=== PATIENT | female | born 1990 | race Two or more races ===

== ENCOUNTER 2024-01-21 13:12 | Emergency (ER) | payer OTHER, SELFPAY ==
[2024-01-21] VITALS (8 sets, daily range): BP systolic 101–148; BP diastolic 73–107; PULSE 74–103; RESP 11–98; TEMP 36.8; O2SAT 17–98; BMI 51.2
--- NOTE | 2024-01-21 13:16 | ECG_ITS ---
APPROVED REPORT Exam: Resting ECG HR:100 bpm ECG Measurements Heart Rate 100 AXES TX 132 P 50 QRSd 104 QRS 5 QT 340 T 30 QTc 397 Conclusion SINUS TACHYCARDIA LOW QRS VOLTAGE IN PRECORDIAL LEADS [QRS DEFLECTION < 1.0 mV IN CHEST LEADS] ABNORMAL RHYTHM ECG Electronically signed by : Abelino Wen, 01/21/2024 16:09:02
--- NOTE | 2024-01-21 13:35 | CT_ITS ---
FINAL REPORT TECHNIQUE: Axial CT images were performed through the head. Coronal reformatted images were submitted. This study was performed with techniques to keep radiation doses as low as reasonably achievable (ALARA). Individualized dose reduction techniques using automated exposure control or adjustment of mA and/or kV according to the patient's size were employed. CLINICAL HISTORY: stallings, vision changes COMPARISON: None FINDINGS: The ventricles are normal in size. There is no evidence of hemorrhage. There is no mass or edema identified. There is no abnormal extra-axial fluid seen. There is a retention cyst or polyp in the left maxillary sinus. IMPRESSION: No acute intracranial process. Reviewed, Interpreted and Dictated by Satnam Edwards MD Transcribed by Ann Aguilar Authenticated and [facility]
--- NOTE | 2024-01-21 13:35 | CT_ITS ---
FINAL REPORT TECHNIQUE: Axial images through the brain were performed after the administration of IV contrast. Coronal reconstructions were submitted. This study was performed with techniques to keep radiation doses as low as reasonably achievable (ALARA). Individualized dose reduction techniques using automated exposure control or adjustment of mA and/or kV according to the patient's size were employed. CLINICAL HISTORY: stallings, vision changes COMPARISON: None FINDINGS: The superior sagittal sinus and transverse sinuses appear patent. There is no evidence of superior sagittal sinus thrombosis. There is no evidence of intracranial hemorrhage or mass. The ventricular size is within normal limits. There is no evidence of shift of the midline structures. No abnormal extra axial fluid collection is identified. No skull abnormality is seen on the bone window images. No evidence of abnormal enhancement. IMPRESSION: No acute intracranial process. Reviewed, Interpreted and Dictated by Satnam Edwards MD Transcribed by Ann Aguilar Authenticated and [facility]
--- NOTE | 2024-01-21 13:35 | CT_ITS ---
FINAL REPORT TECHNIQUE: The patient was injected with IV contrast. Axial images were obtained through the chest in a PE protocol. 3-D reconstruction images were also performed. Individualized dose reduction techniques using automated exposure control or adjustment of the MA and/or KV according to patient's size were employed. CLINICAL HISTORY: cp, sob, tachy COMPARISON: None FINDINGS: Pulmonary arteries are suboptimally opacified. No definite pulmonary artery filling defects are identified to suggest PE. There is no aortic dissection. There is no axillary adenopathy. There is no hilar or mediastinal adenopathy. The heart size is normal. There is no pericardial or pleural effusion. Limited images of the upper abdomen demonstrate fatty infiltration of the liver. 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 The gallbladder is present. There is mild splenomegaly measuring up to 14 cm. The pancreas, adrenals, and kidneys are unremarkable.. No suspicious infiltrate or nodule is identified. IMPRESSION: No definite pulmonary embolus. Fatty liver and mild splenomegaly. Reviewed, Interpreted and Dictated by Satnam Edwards MD Transcribed by Ann Aguilar Authenticated and [facility]
--- NOTE | 2024-01-21 13:45 | [facility].EDGENADL ---
Discharge Plan Disposition Patient Disposition: Home, Self-Care Chief Complaint: Shortness of Breath/Dyspnea Referrals Follow up/Referrals: Provider,MD Monroe [Primary Care Provider] - See instructions Activity Restrictions/Add. Instructions Additional Instructions/Restrictions: Call your family doctor to establish care for this visit to the emergency department and schedule follow-up within 48 hours to ensure improvement. If you have any worsening of your condition or any other concerning signs or symptoms, return to the emergency department or your primary care doctor for further evaluation. Your liver enzymes, called transaminases, are slightly elevated today. This should be followed up with your primary care doctor. Clinical Impressions Clinical Impression: Migraine, Chest pain Print Language Print Language: Somali Discharge ED Provider: Juan Salmeron General Adult HPI <Abelino Wen MD - Last Filed: 01/21/24 16:20> General Chief complaint: Shortness of Breath/Dyspnea Stated complaint: Chest pain Time Seen by Provider: 01/21/24 13:16 Mode of Arrival: Ambulatory Source of Information: Patient Limitations: Language Barrier Description of Symptoms (Recalled from ER Triage Doc. by RN): pt c/o a RUBI, SOA, and chest pressure that started this AM. pt reports this is the worst RUBI she has ever had, pain is 10/10, photophobia, sensitivity to sound, worse at the base of her head and sharp in nature. pt states her chest pressure is a 9/10 in her sternal region. pt denies N/V/D or any recent injuries. pt reports she accidentally took 2 of her metformin this AM. pt takes 1000mg but took 2000mg. History of Present Illness HPI narrative: Patient is a 34-year-old female with history of type 2 diabetes on Januvia and insulin-dependent, takes 10 units of long-acting at night, hypertension. She is presenting today for headache and chest pain and shortness of breath. She reports that her headache has been intermittent over the last week, but since this morning, has been more severe. It is occipital in nature and throbbing, does not radiate, 9 out of 10. She also reports occasional dark spots in her vision, no blurriness. She reports numbness all over her body and cannot localize it. She reports no weakness, but is tired. Nausea without vomiting. No diarrhea. Patient also endorsing chest pain with shortness of breath. She said that this began this morning when she took an extra pill of 500 mg of metformin. She began to feel chest pressure along the anterior chest, does not radiate. She reports shortness of breath as well that is worse upon exertion. Denies significant orthopnea. Denies any lower extremity edema or history of blood clots. Does not take any OCPs or estrogen supplements. Denies any history of this, sick contacts, vomiting, diarrhea. Related Data Allergies Allergy/AdvReac Type Severity Reaction Status Date / Time No Known Allergies Allergy Verified 01/21/24 13:47 PFS <Abelino Wen MD - Last Filed: 01/21/24 16:20> [facility] Disclaimer: The information contained in this section may have been updated after the patient was seen, as this information can be updated by other users. Social History (Updated 01/21/24 @ 16:20 by Abelino Wen MD) Smoking Status: Never smoker alcohol intake: never current occupational status: employed Travel in the last 8 weeks: None <Abelino Wen MD - Last Filed: 01/21/24 16:20> ROS Obtained: Yes All systems reviewed & no additional complaints except as documented Physical Exam <Abelino Wen MD - Last Filed: 01/21/24 16:20> General General appearance: alert and in no apparent distress Head Head exam: atraumatic and normocephalic Eye Eye exam: Present PERRL and EOMI ENT ENT exam: Present normal oropharynx Neck Neck exam: Present full ROM and trachea midline Chest Chest inspection: Present symmetric chest wall rise Respiratory Respiratory exam: Present megan
[2024-01-21 13:55] LABS: Albumin Level 4.4 g/dl (3.5-5.0); Chloride 107 mmol/L (98-107); Potassium 3.5 mmoL/L (3.5-5.1); Sodium 140 mmol/L (136-145)
[2024-01-21 13:57] LABS: Blood Urea Nitrogen 7 mg/dl (7-17); Creatinine Clearance Estimated 154 mL/min (50-200); Estimated Glomerular Filt Rate 181 ml/min (>60); GFR (African American) 219 ML/MIN (>60)
[2024-01-21 13:58] LABS: Alanine Aminotransferase 103 U/L (12-78); Albumin/Globulin Ratio 1.2 (1.1-1.8); Alkaline Phosphatase 179 U/L (38-126); Anion Gap 9.5 mEq/L (5-15); Aspartate Amino Transferase 95 U/L (14-36); Bilirubin,Total 0.5 mg/dl (0.2-1.3); Calcium 9.5 mg/dl (8.4-10.2); Carbon Dioxide 27 mmol/L (22.0-30.0); Globulin 3.6 g/dL (1.3-3.2); Glucose 169 mg/dl (74-100); Magnesium 1.7 mg/dl (1.6-2.3)
[2024-01-21 14:02] LABS: Basophils # 0.1 K/mm3 (0-0.2); Basophils % 0.9 % (0.1-2.0); Eosinophils # 0.5 K/mm3 (0.0-0.4); Eosinophils % 5.7 % (0.1-12.0); Hemoglobin 13.1 g/dL (12.2-16.2); INR 0.91 (0.9-1.1); Lymphocytes # 2.6 K/mm3 (0.7-4.5); Lymphocytes % 31.4 % (10-50); Mean Corpuscular Hemoglobin 27.1 pg (27.0-31.2); Mean Corpuscular Volume 84.9 fl (81-99); Mean Platelet Volume 8.2 fl (7.4-10.4); Monocytes # 0.3 K/mm3 (0.1-1.0); Monocytes % 3.4 % (1.7-9.3); Neutrophils # 4.9 K/mm3 (1.8-7.8); Neutrophils % 58.5 % (37.0-80.0); Platelet Count 300 K/mm3 (142-424); Prothrombin Time 10.3 seconds (10.1-12.5); Red Blood Count 4.82 M/mm3 (4.20-5.40); Red Cell Distribution Width 15.8 % (11.5-17.5); White Blood Count 8.4 K/mm3 (4.8-10.8)
[2024-01-21 14:05] LABS: HCG Qualitative, Serum Negative (Negative)
[2024-01-21 14:17] LABS: Troponin I < 0.01 ng/ml (0.00-0.034)
[2024-01-21 15:37] LABS: Microscopic, Urine URINE MICROSCOPIC (MICROSCOPIC)
[2024-01-21 15:45] LABS: Appearance,Urine CLEAR (Clear); Bilirubin,Urine Negative (Negative); Blood, Urine Negative (Negative); Color,Urine YELLOW (Yellow); Glucose,Urine (UA) 3+ (Negative); Ketones,Urine Negative (Negative); Leukocyte Esterase,Urine Negative (Negative); Nitrate,Urine Negative (Negative); Protein,Urine Negative (Negative); Urobilinogen,Urine 0.2 EU/dl (0.2)
[2024-01-21 16:10] LABS: Bacteria,Urine Trace /lpf
[2024-01-21 17:42] LABS: Troponin I < 0.01 ng/ml (0.00-0.034)
== END 2024-01-21 18:13 | disposition home or self-care (01) ==
PROVIDERS: Emergency Medicine; Emergency Provider Emergency Medicine
DX: G43.909 Migraine, unspecified, not intractable, without status migrainosus (principal); R07.9 Chest pain, unspecified; R06.02 Shortness of breath; R20.0 Anesthesia of skin; R11.0 Nausea; E11.9 Type 2 diabetes mellitus without complications; Z79.4 Long term (current) use of insulin; Z79.84 Long term (current) use of oral hypoglycemic drugs; I10 Essential (primary) hypertension; R94.5 Abnormal results of liver function studies
CPT/HCPCS: 70450; 70496; 71275; 80053; 81001; 83735; 84484; 84703; 85025; 85610; 93005; 96361; 96374; 96375; 99285; J0131; J1885; J7120; Q9967